=== PATIENT | male | born 1965 | race Caucasian/White ===

== ENCOUNTER 2017-12-07 09:29 | Emergency (ER) | payer BC, OTHER ==
[2017-12-07 11:08] VITALS: BP 127/95
--- NOTE | 2017-12-07 11:31 | UC ---
Throat Pain/Nasal Wesly HPI - HPI Summary HPI Summary: Pt c/o bilateral ear "congestion" and left ear pain. Pt also reports that he can "pop" his ears by opening his mouth. Pt also states that he "never gets sick" and that he works outside and now has nasal congestion and "plugged ears" - History of Current Complaint Chief Complaint: UCEar Stated Complaint: LEFT EAR COMPLAINT Time Seen by Provider: 12/07/17 10:51 Hx Obtained From: Patient Onset/Duration: Gradual Onset, Lasting Days, Still Present Severity: Mild Associated Signs & Symptoms: Positive: Sinus Discomfort, Nasal Discharge - Epiglottits Risk Factors Epiglottis Risk Factors: Negative - Allergies/Home Medications Allergies/Adverse Reactions: Allergies Allergy/AdvReac Type Severity Reaction Status Date / Time No Known Allergies Allergy Verified 12/07/17 10:53 Home Medications: Home Medications Cholecalciferol [D 1000] 4,000 unit PO DAILY 12/07/17 [History Confirmed ] Citalopram TAB* [Celexa TAB*] 20 mg PO DAILY 12/07/17 [History Confirmed ] Ferrous Gluconate [Iron] 46 mg PO DAILY 12/07/17 [History Confirmed 12/07/17] Mesalamine (NF) [Apriso (NF)] 4 tab PO BID 12/07/17 [History Confirmed 12/07/17] Topiramate [Topamax 25 mg tab] 25 mg PO DAILY 12/07/17 [History Confirmed ] PMH/Surg Hx/FS Hx/Imm Hx Previously Healthy: Yes - Surgical History Surgical History: Yes Surgery Procedure, Year, and Place: HERNIA REPAIR - Family History Known Family History: Positive: Cardiac Disease - Social History Occupation: Employed Full-time Alcohol Use: Rare Substance Use Type: None Smoking Status (MU): Never Smoked Tobacco Have You Smoked in the Last Year: No - Immunization History Most Recent Influenza Vaccination: NOT IN 2006 Vaccination Up to Date: No Review of Systems Constitutional: Chills Skin: Negative Eyes: Negative ENT: Ear Ache, Sinus Congestion Respiratory: Negative Cardiovascular: Negative Gastrointestinal: Negative Genitourinary: Negative Motor: Negative Neurovascular: Negative Musculoskeletal: Negative Neurological: Negative Psychological: Negative Is Patient Immunocompromised?: No All Other Systems Reviewed And Are Negative: Yes Physical Exam Triage Information Reviewed: Yes Appearance: Well-Appearing Vital Signs: Initial Vital Signs Temp 98.2 F 12/07/17 10:59 Pulse 72 12/07/17 10:59 Resp 16 12/07/17 10:59 BP 127/95 12/07/17 10:59 Pulse Ox 97 12/07/17 10:59 Vital Signs Reviewed: Yes Eye Exam: Normal ENT Exam: Normal ENT: Positive: TM bulging Dental Exam: Normal Neck exam: Normal Respiratory Exam: Normal Cardiovascular Exam: Normal Musculoskeletal Exam: Normal Neurological Exam: Normal Psychological Exam: Normal Skin Exam: Normal Throat Pain/Nasal Course/Dx - Differential Dx/Diagnosis Differential Diagnosis/HQI/PQRI: Influenza, Otitis Media, URI Provider Diagnoses: URI. serous otitis media bilateral Discharge - Discharge Plan Condition: Stable Disposition: HOME Prescriptions: Amoxicillin PO (*) [Amoxicillin 875 MG (*)] 875 mg PO Q12H #20 tab Pseudoephedrine-Guaifenesin [Mucinex D 60-600 mg] 1 tab PO DAILY #10 tab Patient Education Materials: Serous Otitis Media (ED) Referrals: NEO Dimas [Primary Care Provider] - If Needed
== END 2017-12-07 11:38 | disposition home or self-care (01) ==
LOC: UCCORT 09:29
DX: J06.9 Acute upper respiratory infection, unspecified (principal); H65.93 Unspecified nonsuppurative otitis media, bilateral
CPT/HCPCS: 99212; G0463